=== PATIENT | male | born 1990 | race Hispanic/Latino ===

== ENCOUNTER 2021-02-10 11:20 | Day surgery (SDC) | payer SELFPAY ==
[~2021-02-10 11:20] MED LIST: Iopamidol-370 76% 500 ML 1 ML ONE
[2021-02-10 13:57] LABS: #Lymphocytes 1.6 thou/uL (1.20-3.40); #Monocytes 0.5 thou/uL (0.11-0.59); #Neutrophils 9.4 thou/uL (1.40-6.50); %Basophils 0.2 % (0.0-1.0); %Eosinophils 0.3 % (0.0-10.0); %Lymphocytes 13.5 % (21.0-51.0); %Monocytes 4.7 % (0.0-10.0); %Neutrophils 81.3 % (42.0-75.0); Hemoglobin 16.1 g/dL (14.0-18.0); Mean Corpuscular Hemoglobin 30.4 pg (27.0-31.0); Mean Corpuscular Volume 89.3 fL (78.0-98.0); Mean Platelet Volume 7.4 fL (7.4-10.4); Platelet Count 228 thou/uL (130-400); RBC Distribution Width 12.2 % (11.5-14.5); White Blood Cell (WBC) Count 11.5 thou/uL (4.8-10.8)
[2021-02-10 14:16] LABS: ALT (SGPT) 26 U/L (8-55); AST (SGOT) 19 U/L (5-34); Albumin 4.6 g/dL (3.5-5.0); Alkaline Phosphatase 71 U/L (40-110); Anion Gap 10 mmol/L (10-20); BUN (Urea Nitrogen) 9 mg/dL (8.9-20.6); Bilirubin, Total 0.7 mg/dL (0.2-1.2); Calc. Creatinine Clearance 0 mL/min (70-130); Calcium 9.5 mg/dL (7.8-10.44); Carbon Dioxide 28 mmol/L (22-29); Chloride 103 mmol/L (98-107); Globulin 2.7 g/dL (2.4-3.5); Glucose 110 mg/dL (70-105); Lipase 12 U/L (8-78); Potassium 3.9 mmol/L (3.5-5.1); Protein, Total 7.3 g/dL (6.0-8.3); Sodium 137 mmol/L (136-145)
[2021-02-10] MEDS ORDERED: Morphine 4 MG/ML VIAL ONE (14:19)
[2021-02-10] MEDS ORDERED: Ondansetron PF 4 MG/2 ML Vial ONE ×2 (14:19→18:54)
[2021-02-10 15:00] LABS: Bilirubin Negative (Negative); Blood, Urine Negative (Negative); Glucose, Urine (Dipstick) Negative (Negative); Ketone, Urine 40 mg/dL (Negative); Leukocyte Negative (Negative); Nitrite Negative (Negative); Protein, Urine (Dipstick) Negative (Neg-Trace); Specific Gravity, Urine 1.015 (1.005-1.030); Urobilinogen 0.2 mg/dL (Less than 2)
[2021-02-10 15:09] LABS: Bacteria/HPF None Seen HPF (None Seen); Clarity Clear (Clear); RBC/HPF 0-3 HPF (0-3); Squamous Epithelial 0-3 HPF (0-3); WBC/HPF 0-3 HPF (0-3)
[2021-02-10] MEDS ORDERED: Piperacillin/Tazobactam 4.5 GM VIAL ONE (15:38)
[2021-02-10 17:08] LABS: SARS-CoV-2 NAA Rapid Test Not Detected (NotDetected)
[2021-02-10] MEDS ORDERED: Lidocaine 1% w/Epinephrine 1:100K 20 ML VIAL ONE (17:57)
[2021-02-10] MEDS ORDERED: Bupivacaine 0.25% HCL 30 ML VIAL ONE (17:57)
[2021-02-10] MEDS ORDERED: Fentanyl 100 MCG/2 ML VIAL ONE (18:25)
[2021-02-10] MEDS ORDERED: Sodium Chloride 0.9% 100 ML ONE (18:32)
[2021-02-10] MEDS ORDERED: Piperacillin/Tazobactam 3.375 GM VIAL ONE (18:32)
[2021-02-10] MEDS ORDERED: PROPOFOL 200 MG/20 ML VIAL ONE (18:54)
[2021-02-10] MEDS ORDERED: Lidocaine 1% PF 5 ML VIAL ONE (18:54)
[2021-02-10] MEDS ORDERED: Succinylcholine 200 MG/10 ml SYRINGE FS ONE (18:54)
[2021-02-10] MEDS ORDERED: Dexamethasone 20 MG/5 ML VIAL ONE (18:54)
[2021-02-10] MEDS ORDERED: Rocuronium Bromide 10 MG/ML (10ML VIAL) ONE (18:54)
[2021-02-10] MEDS ORDERED: Glycopyrrolate 0.2 MG/ML 5 ML SYRINGE ONE (18:54)
[2021-02-10] MEDS ORDERED: Meperidine HCl/PF 25 MG/ML VIAL ONE (20:05)
[2021-02-10] MEDS ORDERED: HYDROcodone/Acetaminophen 5/325 mg Tablet ONE (20:44)
== END 2021-02-10 21:30 | disposition home or self-care (01) ==
LOC: ERS 11:20 → SDC/OP 17:41
PROVIDERS: ATTEND Surgery
PROC: 0DTJ4ZZ Resection of Appendix, Percutaneous Endoscopic Approach (ICD-10-PCS; principal; 2021-02-10)
DX: K35.80 Unspecified acute appendicitis (principal); K38.1 Appendicular concretions; K76.0 Fatty (change of) liver, not elsewhere classified; F17.210 Nicotine dependence, cigarettes, uncomplicated; Z20.822 Contact with and (suspected) exposure to COVID-19
CPT/HCPCS: 74177; 80053; 81003; 83690; 85025; 88304; 94760; 96365; 96375; J1100; J2175; J2270; J2405; J2543; J2704; J3010; J3490; Q9967; S0020; U0002; U0005